=== PATIENT | male | born 1995 | race Caucasian/White ===

== ENCOUNTER → 2016-11-25 | Outpatient (CLI) | payer OTHER ==
[2016-11-25 07:10] LABS: ALT 43 U/L (21-72); AST 29 U/L (17-59); Alkaline Phosphatase 58 U/L (38-126); Anion Gap 13 mmol/L; Blood Urea Nitrogen 27 mg/dL (9-20); Calcium 9.9 mg/dL (8.4-10.2); Carbon Dioxide 21 mmol/L (22-30); Chloride 108 mmol/L (98-107); Glucose 80 mg/dL (74-99); Non-African American GFR(MDRD) >60 (>60 ml/min/1.73 sqM); Sodium 142 mmol/L (137-145); Total Bilirubin 1.1 mg/dL (0.2-1.3); Total Protein 8.5 g/dL (6.3-8.2)
[2016-11-25 07:21] LABS: Potassium 4.1 mmol/L (3.5-5.1)
--- NOTE | 2016-11-25 09:07 | MR ---
EXAMINATION TYPE: MR brain wo/w con DATE OF EXAM: 11/25/2016 8:32 AM COMPARISON: Prior MRI brain October 30, 2011. CT brain July 29, 2016. HISTORY: Other convulsions and seizure per order. TECHNIQUE: Multiplanar, multisequence images of the brain and brainstem is performed without and with IV contras t, utilizing 15 mL intravenous MultiHance . FINDINGS: Diffusion weighted images demonstrate no evidence of a recent infarct or other diffusion ab normality. There is no extra-axial fluid collection or significant white matter signal abnormality. The ventricular system and cisternal spaces are normal in size and appearance. The brain volume is age appropriate. T2 coronal weighted images show hippocampal gyri to appear symmetric and felt within normal limits. Midline structures demonstrate normal morphology. The craniocervical junction appears within normal limits. Post contrast images demonstrate no abnormal enhancement. The dural venous sinuses appear pa tent. The visualized sinuses are clear and the globes are intact. IMPRESSION: No significant finding is seen to account for patient's symptoms. No significant change f rom prior studies.
== END | disposition home or self-care (01) ==
LOC: RADMRIMAIN 06:48
PROVIDERS: ATTEND Psychiatry & Neurology Pain Medicine
DX: R56.9 Unspecified convulsions (principal)
CPT/HCPCS: 80053; 80177; 70553; A9577